=== PATIENT | male | born 1960 | race Two or more races ===

== ENCOUNTER 2021-04-05 07:07 | Day surgery (SDC) | payer OTHER ==
[~2021-04-05 07:07] MED LIST: ATACAND16 MG PO; GLIMEPIRIDE4 M1 PO; LIPITOR20 MG PO; METFORMIN HCL500 M3 PO
[2021-04-05] MEDS ORDERED: ZOFRAN8 MG PO (11:14)
[2021-04-05] MEDS ORDERED: CEPHALEXIN500 M1 PO (11:14)
== END 2021-04-05 15:25 | disposition home or self-care (01) ==
LOC: CIR.AMB 07:07
PROVIDERS: ATTEND Otolaryngology Otology & Neurotology
DX: H71.22 Cholesteatoma of mastoid, left ear (principal); H90.A32 Mixed conductive and sensorineural hearing loss, unilateral, left ear with restricted hearing on the contralateral side; H72.02 Central perforation of tympanic membrane, left ear; Z20.822 Contact with and (suspected) exposure to COVID-19